=== PATIENT | female | born 1985 | race Caucasian/White ===

== ENCOUNTER 2017-06-14 13:39 | Outpatient (CLI) | payer BC ==
[2017-06-14 14:18] LABS: Hemoglobin 13.8 g/dL (12.0-16.0); Mean Corpuscular HGB CONC 32.6 g/dL (32.0-36.0); Mean Corpuscular Hemoglobin 30.5 pg (27.0-31.0); Mean Corpuscular Volume 93.8 fl (81.0-99.0); Mean Platelet Volume 6.5 fL (7.4-10.4); Platelet Count 483 thou/uL (130-400); RBC Distribution Width 12.1 % (11.5-14.5); White Blood Cell (WBC) Count 10.2 thou/uL (4.8-10.8)
== END 2017-06-14 13:40 | disposition home or self-care (01) ==
LOC: LABBT 13:39
PROVIDERS: ATTEND Obstetrics & Gynecology
DX: Z01.812 Encounter for preprocedural laboratory examination (principal); N91.2 Amenorrhea, unspecified; R10.32 Left lower quadrant pain
CPT/HCPCS: 85027; 86850; 86900; 86901

== ENCOUNTER 2017-06-17 05:48 | Day surgery (SDC) | payer BC ==
[2017-06-14 13:54] VITALS: BMI 29.0
--- NOTE | 2017-06-14 21:15 | HP ---
DATE OF PLANNED PROCEDURE: 06/17/2017 PROCEDURE TO BE PERFORMED: Robotic assisted total laparoscopic hysterectomy with left salpingo-oopho rectomy. HISTORY OF PRESENT ILLNESS: Ms. Tameka Rivera is a 32-year-old with a long history of left lower [place] drant pain. She has a history of lysis of adhesions last year with minimal relief of her pain after diagnostic laparoscopy and adhesiolysis. The patient represented to me after failing multiple anti-i nflammatory treatments back in April, tearful and crying due to her chronic pain. The patient rep orts that over the last 6 months, her periods have become horribly painful. She is missing work and medications are no longer helping. Her left lower quadrant pain has gotten worse mid cycle and durin g her menstrual cycle and she request definitive management with a hysterectomy. Of note, the patien t has seen Gastroenterology for workup of her pelvic pain, which was negative as well as colposcopy. CURRENT MEDICATIONS: Ibuprofen and Celebrex. PAST MEDICAL HISTORY: Headaches, depression. PAST SURGICAL HISTORY: Diagnostic laparoscopy, appendectomy, tubal ligation, and two sectio ns. OBSTETRICAL HISTORY: G5, two C-sections, three spontaneous miscarriages. GYNECOLOGIC HISTORY: Most recent Pap smear in April was atypical squamous cells, but HPV negative , history of cryotherapy for abnormal Pap smear prior, patient is using tubal ligation for cont rol. SOCIAL HISTORY: Negative for tobacco or drug use. Drinks approximately 1 alcoholic beverage a day. She is . ALLERGIES: CODEINE, but not hydrocodone. FAMILY HISTORY: Significant for hypertension in her mother, father, and brother. REVIEW OF SYSTEMS: Negative except per the HPI. PHYSICAL EXAMINATION: VITAL SIGNS: Weight 190 pounds, blood pressure 120/78. GENERAL: No acute distress. Alert and oriented. CARDIOVASCULAR: Regular rate and rhythm. LUNGS: Nonlabored breathing. ABDOMEN: No hepatosplenomegaly, no masses, no rebound, no guarding. GENITOURINARY: Normal external female genitalia. Normal vaginal mucosa, normal appearing cervix. U terus normal size. No adnexal masses and mild tenderness in the left adnexa. NEUROLOGIC: Grossly normal. SKIN: Normal. ASSESSMENT AND PLAN: Ms. Tameka Rivera is a 32-year-old with bilateral tubal ligation and long history of dysmenorrhea and pelvic pain that is not controlled with medications, who desires hystere ctomy with left salpingo-oophorectomy. The patient is aware of the risks, benefits, and alternatives to this treatment plan. She understands the risks are to include, but not limited to bleeding, infe ction, damage to intraabdominal organs, inability to fully diagnose and treat all conditions at the t kash of surgery and possible need for future medical and/or surgical management. The patient's questi ons have been answered to her satisfaction, and she desires to proceed with the procedure as listed a medina.
[2017-06-17] MEDS ORDERED: CEFAZOLIN/Water 2 GM/20 ML SYRINGE ONE (06:11)
[2017-06-17] MEDS ORDERED: Bupivacaine 0.25% HCL 30 ML VIAL ONE (06:31)
[2017-06-17] MEDS ORDERED: Lidocaine 1% w/Epinephrine 1:200K 30 ML VIAL ONE (06:31)
[2017-06-17] MEDS ORDERED: Fentanyl 100 MCG/2 ML VIAL ONE ×3 (06:36→10:08)
[2017-06-17] MEDS ORDERED: Midazolam HCl 2 mg/2 ml Vial ONE (07:25)
[2017-06-17] MEDS ORDERED: Ropivacaine 0.2% 550 ML 750 ML NERVE BLCK SCH (08:00)
[2017-06-17] MEDS ORDERED: Acetaminophen 120 MG Suppository ONE (08:00)
[2017-06-17] MEDS ORDERED: Ondansetron HCl/PF 4 MG/2 ML Vial IVP PRN ×2 (09:54→10:53)
[2017-06-17] MEDS ORDERED: Promethazine HCl 25 MG/ML VIAL IM/IV PRN (09:54)
--- NOTE | 2017-06-17 10:25 | OP ---
DATE OF PROCEDURE: 06/17/2017 PROCEDURE PERFORMED: Robotic-assisted total laparoscopic hysterectomy with left oophorectomy. SURGEON: Philippe Escalera D.O. MANAGER FIELD SALES: Ange Craft M.D. ANESTHESIA: GETA per Dr. Cabrera. ESTIMATED BLOOD LOSS: Less than 30 mL. COMPLICATIONS: None. INTRAOPERATIVE FINDINGS: Normal vagina and cervix. Laparoscopic findings, normal-appearing uterus, normal-appearing right ovary, left ovary with approximate 2 cm simple-appearing cyst and absence of f allopian tubes. No adhesive disease noted. PROCEDURE DETAILS: The patient was taken back to the OR with IV fluids running. Once she was in the OR, general anesthesia was obtained and the patient was placed in dorsal lithotomy position. The ab domen and vagina were prepped and draped in normal fashion for gynecologic laparoscopy. A Riggs cath eter tip was placed into the bladder and drained approximately 150 mL of urine. An operative speculu m was placed into the vagina. The cervix was visualized and the anterior lip of the cervix was grasp ed with a single-tooth tenaculum. The cervix was noted to be stenotic and was severely dilated to al low for passage of the ALCIDES Win manipulator tip. The uterus was sounded with 8 cm in length. A ALCIDES uterine manipulator was assembled with a 3.5 cm cervical coring and an 8 cm tip and placed in the us ual fashion. After the uterine manipulator was placed and the vaginal occluder balloon was inflated, the surgeon's gloves were changed and attention was turned to the laparoscopic portion of the case. A 0.25% Marcaine was placed under the subcutaneous tissue at the supraumbilical fold. A 12 mm skin incision was made with the scalpel. A Veress needle was placed through this incision into the perito tess cavity, which was then insufflated without difficulty. Once the abdomen was insufflated, the Ve ress needle was removed and a 12 mm trocar was placed into the distended abdomen without difficulty. Once the trocar was placed. The laparoscope was placed through this port. The patient was placed i n Trendelenburg position with the above findings noted. Next, using similar technique and under dire ct visualization, the left and right lower quadrant 8 mm robotic trocars were placed as well as the 1 1 mm right upper quadrant assistant professor of spanish port. Once all 4 ports were placed, the robotic arms were docked and the hysterectomy portion of the procedure began. Beginning on the patient's right side, the rig ht utero-ovarian ligament was cauterized and incised, freeing the right ovary from the uterus. The r ound ligament on the patient's right side was cauterized and divided into anterior and posterior leaf s. The dissection continued down towards the level of the uterine artery, which was then skeletonize d. The anterior leaf of the broad ligament was taken down towards the level of the cervix for creati on of the bladder flap. This was done with a bladder back filled so that the anatomy of the bladder could be easily and visually delineated from the planned colpotomy site. The bladder was then dissec fernanda down layer by merchandise displayer the cervix. The uterine artery on the patient's right side was then caut erized and divided. Once the blood supply and the anatomy had been dissected on the right side, atte ntion was turned to the patient's left side. The left IP ligament was identified. It was then caute rized and dissected away from the right ovary, freeing the ovary from the pelvic sidewall. Next, the round ligament was cauterized, incised, and divided into anterior and posterior leafs. The dissecti on was taken down towards the uterine artery on the patient's left side. The bladder flap was comple fernanda on the patient's right side going across the midline anteriorly to complete the bladder flap diss ection. Once this was completed, the uterine artery on the patient's left side was cauterized and di vided. The uterine manipulator was then better adjusted to visually delineate the cervicovaginal gabby ction. The colpotomy was then completed circumferentially without difficulty. Once the colpotomy wa s completed, the uterus and left ovary were retracted into the vagina for pneumoperitoneum. The pedi cles along the pelvic sidewall were irrigated as well as the vaginal cuff and any small areas of blee ding were controlled with bipolar cauterization. The vaginal cuff was then closed with Stratafix sut ure in 2 layers. At the end of the cuff closure, the vaginal cuff was irrigated and suctioned dry wi th no bleeding noted. The pressure was dropped to 7 mmHg with no bleeding noted along the surgical p edicles or vaginal cuff. The ureters were identified bilaterally and noted to be well away from the dissection area. The bladder was back filled with saline one last time prior to completing laparosco pic portion of the case with bladder integrity noted. An ON-Q pump catheter was placed through the a bdominal wall skin just a few centimeters below the umbilicus under direct visualization. The cathet er was then guided down into the cul-de-sac and primed. Once this was completed, all instruments wer e removed from the abdomen. The ports were removed and the gas was released from peritoneal cavity. The supraumbilical incision fascia was closed with Vicryl suture. All 4 skin incisions were closed with Monocryl and dressed with Dermabond dressing, and a Tegaderm dressing was placed over the cathet er insertion site of the abdomen. At the end of the case, the vagina was inspected with hemostasis n oted at the vaginal cuff. No vaginal trauma or injury noted. The patient was then cleaned, dried, t aken out of lithotomy position, extubated, and transferred to the recovery room in good condition.
[2017-06-17] MEDS ORDERED: Simethicone Chewable 80 MG TAB PO PRN (10:53)
[2017-06-17] MEDS ORDERED: Morphine 4 MG/ML Carpuject SLOW IVP PRN (10:53)
[2017-06-17] MEDS ORDERED: Bisacodyl 10 MG SUPP PR PRN (10:53)
[2017-06-17] MEDS ORDERED: Promethazine HCl 25 MG/ML VIAL IM PRN (10:53)
[2017-06-17] MEDS ORDERED: diphenhydrAMINE 25 MG CAP PO PRN (10:53)
[2017-06-17] MEDS ORDERED: Zolpidem Tartrate 5 MG TAB PO PRN (10:53)
[2017-06-17] MEDS ORDERED: HYDROcodone/Acetaminophen 5/325 mg Tablet PO PRN (10:53)
[2017-06-17] MEDS: HYDROcodone/Acetaminophen 5/325 mg Tablet PO PRN ×2 (11:32→15:33)
[2017-06-17] MEDS: Sodium Chloride 0.9% 1,000 ML IV SCH ×3 (11:35→21:50)
[2017-06-17] MEDS ORDERED: Ketorolac Tromethamine 30 MG/ML VIAL ONE (15:02)
[2017-06-17] MEDS ORDERED: Glycopyrrolate 0.2 MG/ML 5 ML SYRINGE ONE (15:02)
[2017-06-17] MEDS ORDERED: Ondansetron HCl/PF 4 MG/2 ML Vial ONE (15:02)
[2017-06-17] MEDS ORDERED: Dexamethasone 20 MG/5 ML VIAL ONE (15:02)
[2017-06-17] MEDS ORDERED: Propofol 200 MG/20 ML VIAL ONE (15:02)
[2017-06-17] MEDS: Ibuprofen 800 MG TAB PO SCH ×2 (15:31→22:26)
[2017-06-18 05:51] LABS: Hemoglobin 11.5 g/dL (12.0-16.0); Mean Corpuscular HGB CONC 31.8 g/dL (32.0-36.0); Mean Corpuscular Hemoglobin 30.5 pg (27.0-31.0); Mean Corpuscular Volume 95.7 fl (81.0-99.0); Mean Platelet Volume 6.9 fL (7.4-10.4); Platelet Count 374 thou/uL (130-400); RBC Distribution Width 11.8 % (11.5-14.5); Red Blood Cell (RBC) Count 3.79 mill/uL (4.20-5.40); White Blood Cell (WBC) Count 13.3 thou/uL (4.8-10.8)
[2017-06-18] MEDS: Ibuprofen 800 MG TAB PO SCH (05:54)
[2017-06-18 08:46] VITALS: BP 113/57; TEMP 98.6
[2017-06-18] MEDS: HYDROcodone/Acetaminophen 5/325 mg Tablet PO PRN (08:48)
--- NOTE | 2017-06-18 10:16 | PDOC.EVN ---
Event Note - Event Note Event Note: POD#1 S: min pain, ambulated to first floor, ravindra reg diet O: VSS and WNL Gen: NAD A and O Lungs: nonlabored breathing Abd: soft, mild tympany, incisions CDI x 4 Janette: dry A/P: POD#1 sp TLH LSO, path pending, DC home today, post op goals met.
== END 2017-06-18 10:30 | disposition home or self-care (01) ==
LOC: SDC 05:48 → 3SE 07:55 → SDC 06-18 10:30
PROVIDERS: ATTEND Obstetrics & Gynecology
DX: N94.6 Dysmenorrhea, unspecified (principal); R10.32 Left lower quadrant pain; F32.9 Major depressive disorder, single episode, unspecified; Z88.5 Allergy status to narcotic agent; Z98.51 Tubal ligation status; Z90.49 Acquired absence of other specified parts of digestive tract; Z98.890 Other specified postprocedural states; Z98.891 History of uterine scar from previous surgery
CPT/HCPCS: 36415; 85027; 88307; A4216; A4306; J0131; J1100; J1885; J2250; J2405; J2704; J2795; J3010; S0020